=== PATIENT | male | born 1995 | race Caucasian/White ===

== ENCOUNTER 2017-12-22 09:34 | Outpatient (CLI) | payer BC ==
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
== END 2017-12-22 09:35 | disposition home or self-care (01) ==
LOC: MRI 09:34
PROVIDERS: ATTEND Family Medicine
DX: S06.0X9D Concussion with loss of consciousness of unspecified duration, subsequent encounter (principal); S33.5XXD Sprain of ligaments of lumbar spine, subsequent encounter; S13.4XXD Sprain of ligaments of cervical spine, subsequent encounter
CPT/HCPCS: 70551

== ENCOUNTER 2018-01-03 13:39 | Outpatient (CLI) | payer BC ==
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
--- NOTE | 2018-01-03 17:31 | MRI ---
MRI LUMBAR SPINE: INDICATIONS: Lumbar strain with low back pain. TECHNIQUE: Multiplanar, multisequential imaging of the lumbar spine obtained without contrast. FINDINGS: The lumbar vertebrae maintain normal height and alignment. Mild loss of disk space noted at L4-L5. Endplate deformities, consistent with small nodes, are seen, involving the superior endplates of L5 a nd L4 and the inferior endplate of L3. At L1-L2, no significant disk bulge or protrusion. No central canal or foraminal stenosis. At L2-L3, no significant disk bulge or protrusion. No central canal or foraminal stenosis. At L3-L4, mild disk bulge abuts the mildly flattened thecal sac. No central canal or foraminal steno sis. At L4-L5, mild disk bulge abuts the thecal sac. No central canal or foraminal stenosis. At L5-S1, there is evidence of posterior spondylolysis at this level, with very mild anterolisthesis. There is diffuse disk bulge abutting the thecal sac. No protrusion. Facet arthrosis. No signific ant central canal or foraminal stenosis. IMPRESSION: 1. 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 Correlate with five vi ew plain film evaluation of the lumbar spine for confirmation. 2. Mild degenerative disk changes at L5-S1. Endplate deformities, as described above. POS: [facility]
== END 2018-01-03 13:40 | disposition home or self-care (01) ==
LOC: BICMRI 13:39
PROVIDERS: ATTEND Family Medicine
DX: S33.5XXD Sprain of ligaments of lumbar spine, subsequent encounter (principal); M47.897 Other spondylosis, lumbosacral region; M43.17 Spondylolisthesis, lumbosacral region; M50.821 Other cervical disc disorders at C4-C5 level; M50.83 Other cervical disc disorders, cervicothoracic region
CPT/HCPCS: 72141; 72148

== ENCOUNTER 2020-09-29 15:57 | Emergency (ER) | payer BC ==
[2020-09-29] MEDS ORDERED: diphenhydrAMINE 25 MG CAP ONE (17:11)
== END 2020-09-29 17:13 | disposition home or self-care (01) ==
LOC: ERS 15:57
DX: R60.0 Localized edema (principal); F17.290 Nicotine dependence, other tobacco product, uncomplicated; Z79.899 Other long term (current) drug therapy
CPT/HCPCS: 93970; Q0163

== ENCOUNTER 2023-01-12 22:12 | Emergency (ER) | payer BC ==
[~2023-01-12 22:12] MED LIST: Iopamidol-370 76% 500 ML MDV (1 ML CHARGE) ONE
[2023-01-12 23:41] LABS: #Basophils 0.1 thou/uL (0.0-0.2); #Eosinphils 0.4 thou/uL (0.0-0.7); #Monocytes 0.4 thou/uL (0.11-0.59); #Neutrophils 3.7 thou/uL (1.40-6.50); %Basophils 0.8 % (0.0-1.0); %Eosinophils 6.3 % (0.0-10.0); %Lymphocytes 24.5 % (21.0-51.0); %Monocytes 7.3 % (0.0-10.0); %Neutrophils 60.9 % (42.0-75.0); Hematocrit 42.7 % (42.0-52.0); Hemoglobin 14.8 g/dL (14.0-18.0); Mean Corpuscular HGB CONC 34.7 g/dL (32.0-36.0); Mean Corpuscular Hemoglobin 29.6 pg (27.0-31.0); Mean Corpuscular Volume 85.4 fl (78.0-98.0); Mean Platelet Volume 10.1 fL (7.4-10.4); Platelet Count 186 10x3/uL (130-400); RBC Distribution Width 11.9 % (11.5-14.5)
[2023-01-13 00:03] LABS: ALT (SGPT) 31 U/L (8-55); AST (SGOT) 18 U/L (5-34); Albumin 4.6 g/dL (3.5-5.0); Alkaline Phosphatase 49 U/L (40-110); Anion Gap 14 mmol/L (10-20); BUN (Urea Nitrogen) 15 mg/dL (8.9-20.6); Calc. Creatinine Clearance 0 mL/min (70-130); Calcium 9.3 mg/dL (7.8-10.44); Carbon Dioxide 23 mmol/L (22-29); Chloride 104 mmol/L (98-107); Estimated GFR 120; Globulin 2.4 g/dL (2.4-3.5); Glucose 95 mg/dL (70-105); Lipase 7 U/L (8-78); Potassium 3.7 mmol/L (3.5-5.1); Sodium 137 mmol/L (136-145)
[2023-01-13 00:07] LABS: Troponin I Less than 0.010 ng/mL (< 0.028)
== END 2023-01-13 00:27 | disposition home or self-care (01) ==
LOC: ERS 22:12
DX: R00.2 Palpitations (principal)
CPT/HCPCS: 71045; 71275; 80053; 83690; 84484; 85025; 93005; Q9967